=== PATIENT | female | born 1965 | race African-American/Black ===

== ENCOUNTER 2023-09-14 08:46 | Day surgery (SDC) | payer BC ==
[2023-09-07 11:10] VITALS: BMI 44.6
[2023-09-14 09:39] VITALS: RESP 18
[2023-09-14 11:25] VITALS: TEMP 98.1
[2023-09-14 12:00] VITALS: BP 111/64; PULSE 64
== END 2023-09-14 12:30 | disposition home or self-care (01) ==
LOC: FASU-ENDO 08:46
PROVIDERS: ATTEND Internal Medicine Gastroenterology
PROC: 0DB98ZX Excision of Duodenum, Via Natural or Artificial Opening Endoscopic, Diagnostic (ICD-10-PCS; 2023-09-14)
PROC: 0DB68ZX Excision of Stomach, Via Natural or Artificial Opening Endoscopic, Diagnostic (ICD-10-PCS; 2023-09-14)
PROC: 0DJD8ZZ Inspection of Lower Intestinal Tract, Via Natural or Artificial Opening Endoscopic (ICD-10-PCS; principal; 2023-09-14 11:00)
DX: Z12.11 Encounter for screening for malignant neoplasm of colon (principal); K29.50 Unspecified chronic gastritis without bleeding
CPT/HCPCS: 88305-TC; 88342-TC